=== PATIENT | female | born 1935 | race Caucasian/White ===

== ENCOUNTER → 2016-06-12 | Outpatient (CLI) | payer OTHER ==
--- NOTE | 2016-06-12 15:32 | MAMMOGRAPHY REPORT ---
BILATERAL DIGITAL SCREENING MAMMOGRAM TOMOSYNTHESIS WITH CAD: 06/12/2016 CLINICAL HISTORY: Routine screening. Patient has no complaints. TECHNIQUE: Breast tomosynthesis in addition to standard 2D mammography was performed. Current study was also evaluated with a Computer Aided Detection (CAD) system. COMPARISON: Comparison is made to exams dated: 10/27/2014 mammogram, 05/21/2014 mammogram, 10/26/2013 mammogram, 09/07/2012 mammogram, 11/07/2013 mammogram, and 03/09/2012 mammogram. BREAST COMPOSITION: There are scattered areas of fibroglandular density in both breasts. FINDINGS: No suspicious masses, calcifications, or areas of architectural distortion are noted in e ither breast. There has been no significant interval change compared to prior exams. Bilateral celso gn-appearing calcifications are not significantly changed. IMPRESSION: ACR BI-RADS CATEGORY 2: BENIGN There is no mammographic evidence of malignancy. A 1 year screening mammogram is recommended. The p atient will receive written notification of the results. Approximately 10% of breast cancers are not detected with mammography. A negative mammographic repor t should not delay biopsy if a clinically suggestive mass is present. Maggy Donnelly M.D. ah/:06/12/2016 14:42:06 Benefits Manager: Florina GIRMM(Yamel)(M), [facility] letter sent: Normal 1/2 BI-RADS Code: ACR BI-RADS Category 2: Benign
== END | disposition home or self-care (01) ==
LOC: C.MAMM 13:43
PROVIDERS: ATTEND Internal Medicine Geriatric Medicine
DX: Z12.31 Encounter for screening mammogram for malignant neoplasm of breast (principal)

== ENCOUNTER → 2016-08-27 | Outpatient (CLI) | payer OTHER | END | disposition home or self-care (01) | LOC: C.PATHSPEC 17:48 | PROVIDERS: ATTEND Dermatology | DX: L57.0 Actinic keratosis (principal) ==

== ENCOUNTER → 2016-10-02 | Outpatient (CLI) | payer OTHER | END | disposition home or self-care (01) | LOC: C.PATHSPEC 17:32 | PROVIDERS: ATTEND Plastic Surgery | DX: C44.719 Basal cell carcinoma of skin of left lower limb, including hip (principal) ==

== ENCOUNTER → 2016-11-05 | Outpatient (CLI) | payer OTHER ==
[2016-11-05 13:05] LABS: BASO % 0.2 %; BASO ABS # 0.02 K/uL (0-0.2); COMPLETE YES; EOS % 1.7 %; HEMATOCRIT 39.9 % (37-47); IG% 0.4 %; LYMPH % 19.4 %; LYMPH ABS # 1.56 K/uL (1.2-3.4); MEAN CELL VOLUME 84.2 fL (80-100); MEAN CORPUSCULAR HEMOGLOBIN 28.1 pg (25-34); MEAN CORPUSCULAR HGB CONC 33.3 g/dl (32-36); MEAN PLATELET VOLUME 10.5 fL (7.4-10.4); MONO % 10.7 %; NEUT % 67.6 %; PLATELET COUNT 217 K/uL (130-400); RED BLOOD COUNT 4.74 M/uL (4.2-5.4); WHITE BLOOD COUNT 8.06 K/uL (4.8-10.8)
[2016-11-05 13:22] LABS: ALT/SGPT 20 U/L (12-78); AST/SGOT 19 U/L (15-37); BLOOD UREA NITROGEN 13 mg/dl (7-18); BUN/CREATININE RATIO 17.6 (10-20); CALCIUM 9.2 mg/dl (8.5-10.1); CARBON DIOXIDE 29 mmol/L (21-32); CHLORIDE 103 mmol/L (98-107); CREATININE 0.75 mg/dl (0.60-1.20); GLUCOSE 126 mg/dl (70-99); POTASSIUM 3.8 mmol/L (3.5-5.1); SODIUM 138 mmol/L (136-145)
[2016-11-05 13:30] LABS: ALB/GLOB RATIO 1.1 (0.9-2); ALKALINE PHOSPHATASE 148 U/L (45-117); CHOLESTEROL 135 mg/dl (0-200); CHOLESTEROL/HDL RATIO 3.4; HDL CHOLESTEROL 40 mg/dl; LDL CHOLESTEROL CALCULATED 60 mg/dl; TRIGLYCERIDES 176 mg/dl (0-150); VERY LOW DENSITY LIPOPROT CALC 35 mg/dl
[2016-11-05 13:55] LABS: ESTIMATED AVERAGE GLUCOSE 140 mg/dl; HA1C FLAG Normal (Normal)
== END | disposition home or self-care (01) ==
LOC: C.LABMFLN 09:53
PROVIDERS: ATTEND Internal Medicine Geriatric Medicine
DX: E11.9 Type 2 diabetes mellitus without complications (principal); I10 Essential (primary) hypertension; E78.5 Hyperlipidemia, unspecified; I25.10 Atherosclerotic heart disease of native coronary artery without angina pectoris; E83.52 Hypercalcemia

== ENCOUNTER → 2017-01-26 | Outpatient (CLI) | payer OTHER ==
[2017-01-26 14:04] LABS: ALT/SGPT 23 U/L (12-78); AST/SGOT 22 U/L (15-37)
== END | disposition home or self-care (01) ==
LOC: C.LABMFLN 11:45
PROVIDERS: ATTEND Internal Medicine Cardiovascular Disease
DX: I10 Essential (primary) hypertension (principal); E78.5 Hyperlipidemia, unspecified; I25.10 Atherosclerotic heart disease of native coronary artery without angina pectoris; I42.9 Cardiomyopathy, unspecified

== ENCOUNTER → 2017-05-25 | Outpatient (CLI) | payer OTHER ==
[2017-05-25 18:20] LABS: BASO % 0.3 %; BASO ABS # 0.02 K/uL (0-0.2); EOS % 1.5 %; EOS ABS # 0.11 K/uL (0-0.5); HEMATOCRIT 39.5 % (37-47); HEMOGLOBIN 13.3 g/dL (12.0-16.0); IG# 0.01 K/uL (0.00-0.02); LYMPH % 18.4 %; LYMPH ABS # 1.37 K/uL (1.2-3.4); MEAN CELL VOLUME 86.1 fL (80-100); MEAN CORPUSCULAR HGB CONC 33.7 g/dl (32-36); MEAN PLATELET VOLUME 11.2 fL (7.4-10.4); MONO % 11.3 %; MONO ABS # 0.84 K/uL (0.11-0.59); NEUT % 68.4 %; NEUT ABS # 5.08 K/uL (1.4-6.5); PLATELET COUNT 214 K/uL (130-400); RED CELL DISTRIBUTION WIDTH CV 14.3 % (11.5-14.5); WHITE BLOOD COUNT 7.43 K/uL (4.8-10.8)
[2017-05-25 18:53] LABS: ALBUMIN 3.6 gm/dl (3.4-5.0); ALT/SGPT 21 U/L (12-78); BLOOD UREA NITROGEN 16 mg/dl (7-18); CALCIUM 9.1 mg/dl (8.5-10.1); CARBON DIOXIDE 32 mmol/L (21-32); CHOLESTEROL 115 mg/dl (0-200); CREATININE 0.75 mg/dl (0.60-1.20); GLUCOSE 116 mg/dl (70-99); POTASSIUM 3.6 mmol/L (3.5-5.1); SODIUM 134 mmol/L (136-145)
[2017-05-25 18:55] LABS: ALKALINE PHOSPHATASE 139 U/L (45-117); AST/SGOT 24 U/L (15-37); LDL CHOLESTEROL CALCULATED 48 mg/dl; TOTAL PROTEIN 7.1 gm/dl (6.4-8.2)
[2017-05-26 05:40] LABS: HEMOGLOBIN A1C 6.6 % (4.5-5.6)
== END | disposition home or self-care (01) ==
LOC: C.LABMFLN 10:43
PROVIDERS: ATTEND Internal Medicine Geriatric Medicine
DX: E11.42 Type 2 diabetes mellitus with diabetic polyneuropathy (principal); F32.9 Major depressive disorder, single episode, unspecified; I10 Essential (primary) hypertension; E78.5 Hyperlipidemia, unspecified; I25.10 Atherosclerotic heart disease of native coronary artery without angina pectoris; E83.52 Hypercalcemia

== ENCOUNTER → 2017-08-19 | Outpatient (CLI) | payer OTHER ==
--- NOTE | 2017-08-20 14:54 | MAMMOGRAPHY REPORT ---
BILATERAL DIGITAL SCREENING MAMMOGRAM TOMOSYNTHESIS WITH CAD: 08/19/2017 CLINICAL HISTORY: Routine screening. Patient has no complaints. TECHNIQUE: Breast tomosynthesis in addition to standard 2D mammography was performed. Current study was also evaluated with a Computer Aided Detection (CAD) system. COMPARISON: Comparison is made to exams dated: 06/12/2016 mammogram - [facility], 11/07/2014 mammogram, 10/27/2014 mammogram, 05/21/2014 mammogram, 11/07/2013 mammogram, and 10/26/2013 mammogr am. BREAST COMPOSITION: There are scattered areas of fibroglandular density in both breasts. FINDINGS: There is a spiculated 13 mm mass with associated microcalcifications in the upper outer an terior left breast. Additional spot magnification views and targeted ultrasound are recommended for further evaluation. There is Mild vascular calcifications and other scattered punctate and round microcalcifications in each breas t. A linear scar marker overlies the superior left breast. No other suspicious mass, architectural distortion or cluster of microcalcifications is seen. IMPRESSION: ACR BI-RADS CATEGORY 0: INCOMPLETE EVALUATION: NEED ADDITIONAL IMAGING EVALUATION The spiculated mass with associated microcalcification in the upper outer anterior left breast needs additional evaluation. The patient will be called to schedule an appointment. Approximately 10% of breast cancers are not detected with mammography. A negative mammographic report should not delay biopsy if a clinically suggestive mass is present. Dede Vasquez M.D. ay/:08/19/2017 15:48:49 Rn Informatics: Macarena GRIMM(Yamel)(Som)(BD), [facility] letter sent: Addl Imaging 0 BI-RADS Code: ACR BI-RADS Category 0: Incomplete Evaluation: Need Additional Imaging Evaluation
== END | disposition home or self-care (01) ==
LOC: C.MAMM 14:14
PROVIDERS: ATTEND Internal Medicine Geriatric Medicine
DX: Z12.31 Encounter for screening mammogram for malignant neoplasm of breast (principal); N63.21 Unspecified lump in the left breast, upper outer quadrant; R92.0 Mammographic microcalcification found on diagnostic imaging of breast

== ENCOUNTER → 2017-09-03 | Outpatient (CLI) | payer OTHER ==
--- NOTE | 2017-09-04 14:21 | MAMMOGRAPHY REPORT ---
UNILATERAL LEFT DIGITAL DIAGNOSTIC MAMMOGRAM AND TARGETED LEFT ULTRASOUND: 09/03/2017 CLINICAL HISTORY: Callback from screening mammogram for left breast mass and calcifications. TECHNIQUE: Spot magnification left CC and ML views were obtained. COMPARISON: Comparison is made to exams dated: 08/19/2017 mammogram, 06/12/2016 mammogram - [facility], 11/07/2014 mammogram, 10/27/2014 mammogram, 05/21/2014 mammogram, and 11/07/2013 mammogr am. BREAST COMPOSITION: There are scattered areas of fibroglandular density in the left breast. FINDINGS: Spot magnification views demonstrate a persistent spiculated 14 x 9 mm mass with associated pleomorphic calcifications within the left upper outer anterior breast. Additionally, another simil ar-appearing pleomorphic calcifications are seen throughout the left upper outer quadrant, with total extent of the calcifications measuring approximately 6.3 x 5.8 x 6.7 cm. Targeted ultrasound was performed of the left upper outer anterior breast in the region of the mammog raphic mass and calcifications. In the left 1:00 subareolar breast, there is an irregular hypoechoic spiculated mass which measures 1.4 x 0.7 x 1.3 cm. this corresponds with the spiculated mammographic mass with associated calcifications and is highly suspicious for malignancy. Targeted ultrasound wa s performed of the left axilla, which shows morphologically normal left axillary lymph nodes without clear evidence of adenopathy. IMPRESSION: ACR BI-RADS CATEGORY 5: HIGHLY SUGGESTIVE OF MALIGNANCY, TARGETED ULTRASOUND ACR BI-RADS CATEGORY 5: HIGHLY SUGGESTIVE OF MALIGNANCY 1. Spiculated 14 mm mass with associated internal pleomorphic calcifications within the left 1:00 sub areolar breast. Additionally, other suspicious pleomorphic calcifications are seen throughout the le ft upper outer quadrant, with extent of the calcifications measuring approximately 6.3 x 5.8 x 6.7 cm . Overall the findings are highly suspicious for malignancy and ultrasound-guided biopsy is recommen ded of the left 1:00 breast mass and stereotactic biopsy is recommended of other calcifications furth est from the mass to determine extent of disease. 2. No evidence of left axillary adenopathy on ultrasound. A phone call was made to the physician's office to confirm faxed results were received. The patient has been verbally notified of the results. She tentatively scheduled the biopsies before leaving the department. Approximately 10% of breast cancers are not detected with mammography. A negative mammographic report should not delay biopsy if a clinically suggestive mass is present. Maggy Donnelly M.D. ah/:09/03/2017 15:47:30 Marketing Database Consultant: Florina ELLIOTT)(Som), [facility] letter sent: Abnormal 4/5 BI-RADS Code: ACR BI-RADS Category 5: Highly Suggestive Of Malignancy Ultrasound BI-RADS: ACR BI-RAD S Category 5: Highly Suggestive Of Malignancy
== END | disposition home or self-care (01) ==
LOC: C.MAMM 11:18
PROVIDERS: ATTEND Internal Medicine Geriatric Medicine
DX: N63.21 Unspecified lump in the left breast, upper outer quadrant (principal); R92.1 Mammographic calcification found on diagnostic imaging of breast

== ENCOUNTER → 2017-09-09 | Outpatient (CLI) | payer OTHER ==
--- NOTE | 2017-09-09 14:23 | Discharge Instructions ---
Discharge Instructions Procedure Procedure Date: September 09, 2017. Reason for visit: Left Calcs; Us Bx Left Mass. Discharge Discharge Date: September 09, 2017. Discharge Diagnosis: status post breast biopsy Instructions Activity Recommendations: Additional Limitations (see below) Return to School/Work: no limitations Recommended Home Diet: No Limitations Provider Instructions: ACTIVITY RECOMMENDATIONS: * No lifting, pushing, pulling or exercising the affected side for three days. RETURN TO SCHOOL/WORK: * You may return to work/school after the procedure, but do not perform any strenuous activities for 24 to 48 hours. MEDICATIONS: * Tylenol (two 325 mg) every four to six hours if needed for mild pain (if not allergic to Tylenol). DIET: * Resume previous diet. SPECIAL CARE INSTRUCTIONS: * Keep biopsy site dry for 24 hours. May shower after 24 hours, but do not soak (bathe) incision. * May remove Tegaderm (plastic patch) tomorrow AFTER showering. * Leave the steri-strips on for one week. Allow the steri-strips to fall off by themselves. If not off after one week, you may remove them. You may place a Bandaid crosswise over the strips, if desired. * Apply ice 10 minutes on and 10 minutes off as needed. * Wear a bra at bedtime to sleep more comfortably for 2-3 days. * Your referring physician should have the results after approximately 5 to 7 business days. * Call for unusual bleeding, fever, drainage, etc or if you have any questions call during normal business hours or after hours call Dr Donnelly, . FOLLOW UP VISIT: Follow-up with Referring Physician as scheduled. Olga Leong Recommendations: Call your doctor if: * Temperature above 101 degrees * Pain not relieved by pain medicine ordered * There is increased drainage or redness from any incision * You have any unanswered questions or concerns. Your Doctors Instructions noted above were prepared by provider Maggy Donnelly. Patient Signature Section: Patient Instructions Signature Page Regina Camargo Patient (or Guardian) Signature/Date: I have read and understand the instructions given to me by my caregivers. Caregiver/RN/Doctor Signature/Date: The above-named patient and/or guardian has received patient instructions on this date. + Original Patient Signature Page (only) stays with chart. Please make copy for patient.
--- NOTE | 2017-09-11 07:46 | MAMMOGRAPHY REPORT ---
STEREOTACTIC GUIDED BIOPSY LEFT BREAST: 09/09/2017 CLINICAL HISTORY: Suspicious mass with associated calcifications in the left 1:00 breast anteriorly, as well as other pleomorphic calcifications seen throughout the left upper outer quadrant. PATIENT CONSENT: The procedure, risks, benefits, and alternatives of stereotactic biopsy with clip pl acement were discussed with the patient, and verbal and written consent was obtained. A timeout was performed immediately prior to the procedure. PROCEDURE DESCRIPTION: With stereotactic guidance, aseptic technique, and lidocaine as a local anesth etic (1% lidocaine to anesthetize the skin and 1% lidocaine with epinephrine to anesthetize the deepe r tissues), pleomorphic calcifications within the left central/3:00 breast were sampled multiple time s with a 9-gauge vacuum-assisted biopsy needle ([employer]). The path of approach was lateral. The specimen radiograph demonstrates calcifications to be present in the samples. A metallic marker cli p was placed at the biopsy site. This was confirmed on postprocedure mammograms; see separate dictat ion for details. Direct pressure was applied at the biopsy site and hemostasis was readily achieved. The patient tolerated the procedure without complication. She was given wound care instructions. COMPARISON: Comparison is made to exams dated: 09/03/2017 ultrasound, 09/03/2017 mammogram, 08/19/2017 ma mmogram, 06/12/2016 mammogram - [facility], 10/27/2014 mammogram, and 11/07/2013 mammogr am. IMPRESSION: STEREOTACTIC GUIDED BIOPSY Stereotactic biopsy of indeterminate calcifications in the left 3:00/central breast, with clip placem ent. The patient will receive pathology results from her referring provider. Maggy Donnelly M.D. ah/:09/09/2017 15:15:17 Attending Technologist: Florina Jones RT(R)(M), [facility] Repair Order Clerk: Wenceslao Olivarez RT(R)(M), [facility]
--- NOTE | 2017-09-11 07:50 | MAMMOGRAPHY REPORT ---
UNILATERAL LEFT DIGITAL DIAGNOSTIC MAMMOGRAM TOMOSYNTHESIS: 09/09/2017 CLINICAL HISTORY: Status post left breast biopsies. TECHNIQUE: Breast tomosynthesis in addition to standard 2D mammography was performed. Postprocedura l left CC and LM 2D and tomosynthesis images were obtained. COMPARISON: Comparison is made to exams dated: 09/03/2017 ultrasound, 09/03/2017 mammogram, 08/19/2017 ma mmogram, 06/12/2016 mammogram - [facility], 11/07/2014 mammogram, and 05/21/2014 mammogr am. BREAST COMPOSITION: There are scattered areas of fibroglandular density in the left breast. FINDINGS: A new ribbon-shaped biopsy marker clip is seen at the site of the biopsied mass and calcifi cations in the left 1:00 anterior breast. A new dumbbell-shaped biopsy marker clip is seen in the le ft 9:00 breast status post stereotactic biopsy of left central/3:00 breast calcifications. There is probable medial migration of the biopsy marker clip from the biopsy site of approximately 18 mm, like ly due to accordion effect. The 2 biopsy sites are approximately 3.9 cm apart on the cc view and 3.5 cm apart on the LM view. No significant postbiopsy hematoma is seen. IMPRESSION: POST PROCEDURE IMAGING FOR MARKER PLACEMENT New biopsy marker clips status post left breast biopsies. Pathology results are pending. Approximately 10% of breast cancers are not detected with mammography. A negative mammographic report should not delay biopsy if a clinically suggestive mass is present. Maggy Donnelly M.D. ah/:09/09/2017 15:17:28 Attending Technologist: Florina Jones RT(R)(M), [facility] Pin Drafter: Wenceslao Olivarez RT(R)(M), [facility] BI-RADS Code: Post Procedure Imaging For Marker Placement
--- NOTE | 2017-09-14 10:16 | MAMMOGRAPHY REPORT ---
ULTRASOUND GUIDED BIOPSY LEFT BREAST: 09/09/2017 CLINICAL HISTORY: Spiculated mass with associated calcifications in the left 1:00 breast. PATIENT CONSENT: The procedure, risks and benefits were discussed with the patient and informed writt en consent was obtained. A timeout was performed immediately prior to the procedure. PROCEDURE DESCRIPTION: With ultrasound guidance, aseptic technique, and lidocaine as the local anesth etic (1% lidocaine to anesthetize the skin and 1% lidocaine with epinephrine to anesthetize the deepe r tissues), the mass of concern in the left 1:00 breast with associated calcifications was sampled 4 times with a 14-gauge Achieve biopsy needle. Immediately thereafter, with ultrasound guidance, asepti c technique, and lidocaine as the local anesthetic, a metallic localizer clip was placed centrally in the mass. Direct pressure was applied to the site immediately post procedure and hemostasis was ach ieved. Postprocedure unilateral mammograms were performed to confirm placement of the clip in the ex pected location of the breast mass. The patient tolerated the procedure without complication. She w as given wound care instructions. The specimens were sent to pathology for analysis. COMPARISON: Comparison is made to exams dated: 09/03/2017 ultrasound, 09/03/2017 mammogram, 08/19/2017 ma mmogram, 06/12/2016 mammogram - [facility], 10/27/2014 mammogram, and 05/21/2014 mammog radha. IMPRESSION: ULTRASOUND GUIDED BIOPSY Ultrasound-guided core needle biopsy of the left 1:00 breast mass with associated calcifications, wit h clip placement. The patient will receive pathology results from her referring provider. Maggy Donnelly M.D. ah/:09/09/2017 14:24:33 Continuous Process Tanner Rotary Drum: Wenceslao GRIMM(R)(M), [facility]
== END | disposition home or self-care (01) ==
LOC: C.MAMM 13:25
PROVIDERS: ATTEND Internal Medicine Geriatric Medicine
DX: R92.1 Mammographic calcification found on diagnostic imaging of breast (principal); N63.20 Unspecified lump in the left breast, unspecified quadrant; D05.12 Intraductal carcinoma in situ of left breast

== ENCOUNTER → 2017-12-16 | Outpatient (CLI) | payer OTHER ==
[~2017-12-16] MED LIST: ASPI81TA28 PO; ATEN50TA8 PO; ATOR-26 PO; BNC/40 PO; CALC500C3 PO; CALC500C70 PO; CETI10TA84 PO; CLB/200 PO; GABA-112 PO; GLC/500 PO; HYDR25TA5 PO; MELATAB2 PO; OMEG10007 PO; VENL150C2 PO; VENL75CA88 PO
[2017-12-16 11:59] LABS: ALBUMIN 3.4 gm/dl (3.4-5.0); ALKALINE PHOSPHATASE 141 U/L (45-117); ALT/SGPT 20 U/L (12-78); AST/SGOT 20 U/L (15-37); BLOOD UREA NITROGEN 18 mg/dl (7-18); CALCIUM 9.3 mg/dl (8.5-10.1); CARBON DIOXIDE 28 mmol/L (21-32); CREATININE 0.67 mg/dl (0.60-1.20); GLUCOSE 106 mg/dl (70-99); POTASSIUM 4.1 mmol/L (3.5-5.1); SODIUM 132 mmol/L (136-145); TOTAL PROTEIN 7.2 gm/dl (6.4-8.2)
[2017-12-16 12:12] LABS: BASO % 0.2 %; BASO ABS # 0.04 K/uL (0-0.2); EOS % 0.1 %; EOS ABS # 0.01 K/uL (0-0.5); HEMATOCRIT 28.8 % (37-47); HEMOGLOBIN 9.5 g/dL (12.0-16.0); IG# 0.19 K/uL (0.00-0.02); LYMPH ABS # 0.76 K/uL (1.2-3.4); MEAN CELL VOLUME 80.2 fL (80-100); MEAN CORPUSCULAR HEMOGLOBIN 26.5 pg (25-34); MEAN PLATELET VOLUME 9.8 fL (7.4-10.4); MONO % 8.8 %; MONO ABS # 1.66 K/uL (0.11-0.59); NEUT % 85.9 %; NEUT ABS # 16.27 K/uL (1.4-6.5); NUCLEATED RED BLOOD CELL ABS 0.04 K/uL (0-0); PLATELET COUNT 241 K/uL (130-400); RED CELL DISTRIBUTION WIDTH CV 14.5 % (11.5-14.5); RED CELL DISTRIBUTION WIDTH SD 41.6 fL (36.4-46.3); WHITE BLOOD COUNT 18.93 K/uL (4.8-10.8)
== END | disposition home or self-care (01) ==
LOC: C.LABSPEC 11:23
PROVIDERS: ATTEND Nurse Practitioner Family
DX: C50.112 Malignant neoplasm of central portion of left female breast (principal)

== ENCOUNTER 2019-03-03 01:06 | Inpatient (IN) ==
[2019-03-03 01:50] LABS: Basophils # (auto) 0.01 K/uL (0-0.2); Basophils % (auto) 0.1 %; Eosinophils # (auto) 0.14 K/uL (0-0.5); Eosinophils % (auto) 1.3 %; Hematocrit (blood only) 34.6 % (37-47); Hemoglobin 11.6 g/dL (12.0-16.0); Immature Granulocytes # (auto) 0.02 K/uL (0.00-0.02); Immature Granulocytes % (auto) 0.2 %; Lymphocytes # (auto) 1.33 K/uL (1.2-3.4); Lymphocytes % (auto) 12.5 %; Mean Corpuscular Hemoglobin 28.7 pg (25-34); Mean Corpuscular Hgb Conc 33.5 g/dL (32-36); Mean Corpuscular Volume 85.6 fL (80-100); Mean Platelet Volume 10.1 fL (7.4-10.4); Monocytes # (auto) 1.02 K/uL (0.11-0.59); Monocytes % (auto) 9.6 %; Neutrophils # (auto) 8.16 K/uL (1.4-6.5); Neutrophils % (auto) 76.3 %; Platelet Count 172 K/uL (130-400); RDW Coefficient of Variation 14.1 % (11.5-14.5); RDW Standard Deviation 44.1 fL (36.4-46.3); Red Blood Count 4.04 M/uL (4.2-5.4); White Blood Count 10.68 K/uL (4.8-10.8)
[2019-03-03 03:48] LABS: BUN Creatinine Ratio 19.8 (10-20); Calcium 9.1 mg/dl (8.5-10.1); Creatinine Clr Calc Pharmacy 38.9 ml/min; Est GFR (African American) 67.7; Est GFR (Non-African American) 58.4; Potassium 3.4 mmol/L (3.5-5.1)
[2019-03-03 03:56] LABS: Partial Thromboplastin Ratio 0.9; Partial Thromboplastin Time 25.5 Seconds (21.0-31.0); Prothrombin Time 10.5 Seconds (9.0-12.0)
[2019-03-03] MEDS ORDERED: ONDANSETRON INJ 2 MG/ML 2 ML VIAL IV PRN (05:15)
[2019-03-03] MEDS ORDERED: cloNIDine HCl 0.1 MG TAB PO PRN (05:15)
[2019-03-03] MEDS ORDERED: CETIRIZINE HCL 10 MG TABLET PO PRN (05:15)
[2019-03-03] MEDS ORDERED: SODIUM CHLORIDE 0.9% 1000ML 1,000 ML IV SCH (05:15)
[2019-03-03] MEDS ORDERED: MELATONIN PO SCH (05:15)
[2019-03-03] MEDS ORDERED: POLYETHYLENE (MIRALAX) 17 GM PACK PO PRN (05:15)
--- NOTE | 2019-03-03 05:21 | History and Physical Report ---
DATE OF ADMISSION: 03/03/2019 CHIEF COMPLAINT: Status post fall. HISTORY OF PRESENT ILLNESS: This is an 83-year-old female with past medical history significant for type 2 diabetes, hyperlipidemia, allergic rhinitis, CAD status post stents, hypertension, GERD, dermatitis, history of osteoporosis, depression, history of breast cancer status post left simple mastectomy, who lives with her , who comes with a fall. The patient was on the ladder painting her house. When getting down the second step, she somehow lost balance and fell sideways. Eventually, she was able to get up with the help of her , but she could not put weight on the legs because of severe pain, so she came to the ER. She did not hit her head, no loss of consciousness. In the ER, imaging studies showed pubic rami fracture. The patient denies any other complaints. Until this happened, she was able to ambulate without any help. Denies any headache. No dizziness, no blurred visions, no earache, no runny nose, no sore throat, no difficulty swallowing. No chest pain, no shortness of breath, no cough, no fever, no chills. Sleeps okay. No recent weight gain or weight loss. No nausea, no vomiting, no abdominal pain. Normal bowel and bladder movements. No hematuria, no hematochezia, no black stools. No rash. Currently resting comfortably and hemodynamically stable. ALLERGIES: IODINATED DIAGNOSTIC AGENTS, LISINOPRIL, AND PAROXETINE. PAST MEDICAL HISTORY: As mentioned above. PAST SURGICAL HISTORY: Breast needle localization, cardiac catheterization status post stent placement, angioplasty in 1989, EGD, appendectomy. MEDICATIONS: The patient is on aspirin 81 mg p.o. daily, alendronate 70 mg p.o. q. weekly, anastrozole 1 mg p.o. daily, atenolol 50 mg p.o. daily, atorvastatin 80 mg p.o. daily, calcium carbonate 1 tablet daily, Celecoxib 200 mg p.o. daily, cetirizine 10 mg p.o. daily p.r.n., Dexilant 60 mg p.o. daily, clobetasol 0.05% topical b.i.d., gabapentin 300 mg p.o. t.i.d., hydrochlorothiazide 25 mg p.o. daily, melatonin 5 mg p.o. at bedtime, metformin 500 mg 1 tablet in a.m. and 2 tablets in p.m., multivitamin 1 capsule daily, olmesartan 40 mg p.o. daily, venlafaxine 75 mg daily, venlafaxine ER 150 mg tablet. SOCIAL HISTORY: , lives with her . No smoking. Alcohol rarely. No drug use. FAMILY HISTORY: Significant for father has arthritis, diabetes, high cholesterol, cataracts, heart disorder, hypertension, COPD. Mother had osteoporosis, hypertension, heart disorder, cataract, high cholesterol, colon polyps, arthritis. Sister has diabetes, high cholesterol. REVIEW OF SYSTEMS: As per HPI. Rest of the review of systems negative. PHYSICAL EXAMINATION: GENERAL: The patient is of moderate build, not in acute distress. VITAL SIGNS: Temperature 37, pulse 70, respiratory rate 18, blood pressure 162/99, and oxygen 99% on room air. HEENT: No pallor, no icterus. Pupils equal, round, reactive to light. NECK: No JVD, no neck masses, no carotid bruits. CARDIOVASCULAR: S1, S2 heard, regular rate and rhythm, no murmur, no gallop. RESPIRATORY SYSTEM: Normal AP diameter. No accessory muscle use. No wheezing, no crackles. ABDOMEN: Soft, bowel sounds present, nontender. No distention. CENTRAL NERVOUS SYSTEM: Cranial nerves II-XII grossly intact, nonfocal. EXTREMITIES: No edema, no erythema. Painful movements of the lower extremities remains on the right side. LABORATORY DATA: WBC 10, hemoglobin 11.6, hematocrit 34.6, platelets 172. PT 10.5, INR 1, APTT 25.5. Sodium 136, potassium 3.4, chloride 101, bicarbonate 27, BUN 18, creatinine 0.9, serum glucose 125, calcium 9.1. IMAGING DATA: Chest x-ray, no acute process seen. ASSESSMENT AND PLAN: This is an 83-year-old female who presents with fall and pelvic rami fracture. 1. Fall, pelvic rami fracture, ambulatory dysfunction. Pain control, PT, OT. We will consult orthopedics for further recommendation. Social service to help with discharge planning. The patient may need rehabilitation. Gentle fluids. Monitor in the medical floor. 2. History of diabetes. Hold metformin, placed on insulin sliding scale. Will follow the blood sugars, follow HbA1c level. 3. History of hypertension. Continue olmesartan, atenolol, and hydrochlorothiazide. We will place on clonidine p.r.n. 4. History of coronary artery disease status post stent, on aspirin, Lipitor, beta tatyana, currently stable. 5. History of gastroesophageal reflux disease, on Dexilant. 6. Hyperlipidemia, on statin. 7. Depression, on venlafaxine. 8. History of breast cancer status post left simple mastectomy, on anastrozole. 9. Deep venous thrombosis prophylaxis. Heparin subQ for now. 10. Disposition: Admit to medical floor. PT and OT prior to discharge. Social service to help with discharge planing. Patient may need rehab placement. Level 1 full code. MTDD
[2019-03-03] MEDS ORDERED: GLUCOSE 40% GEL 15 GM TUBE PO PRN (05:30)
[2019-03-03] MEDS ORDERED: CARBOHYDRATES FOR HYPOGLYCEMIA PO PRN (05:30)
[2019-03-03] MEDS ORDERED: GLUCOSE 10 TABS/TUBE PO PRN (05:30)
[2019-03-03] MEDS ORDERED: DEXTROSE 50% 50 ML SYRINGE IV PRN (05:30)
[2019-03-03] MEDS ORDERED: GLUCAGON FOR INJ 1 MG VIAL SQ PRN (05:30)
[2019-03-03] MEDS: HEPARIN SOD 5,000 UNIT/0.5 ML VIAL SQ SCH ×3 (05:57→21:34)
[2019-03-03] MEDS: OXYCODONE HCL IR 5 MG TAB (IMMEDIATE RELEASE) PO PRN ×4 (05:59→21:39)
[2019-03-03] MEDS ORDERED: POTASSIUM CHLORIDE 20 MEQ TABCR PO STA (06:06)
--- NOTE | 2019-03-03 06:35 | XRay Report ---
XR chest 1V portable CLINICAL HISTORY: Preoperative chest COMPARISON STUDY: 11/18/2017 FINDINGS: The cardiac and mediastinal contours remain stable. A left-sided A-Port catheter is again v isualized. There is no focal pulmonary consolidation. There is no failure. There are no pleural effus ions. Surgical clips are visualized the level of the esophagogastric junction.[ IMPRESSION: No active disease in the chest. Electronically signed by: Massimo Mitchell M.D. 03/03/2019 6:33 AM
--- NOTE | 2019-03-03 06:37 | XRay Report ---
XR hip RT 2V w pelvis CLINICAL HISTORY: Right hip pain status post trauma COMPARISON: None. DISCUSSION: There is a suspected right ischio pubic ring fracture. No femoral neck fractures are visu alized. IMPRESSION: Nondisplaced right ischio pubic ring fracture. Electronically signed by: Massimo Mitchell M.D. 03/03/2019 6:35 AM
--- NOTE | 2019-03-03 06:39 | XRay Report ---
XR wrist RT min 3V routine CLINICAL HISTORY: Wrist pain status post trauma COMPARISON: None. DISCUSSION: No acute fractures are visualized. There are cystic/erosive changes involving the triquet rum and radius. There is widening of the scapholunate distance indicative of a scapholunate ligamento us disruption. There are corticated ossicles at the level of the anterior radiocarpal joint. IMPRESSION: 1. No acute fractures 2. 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 03/03/2019 6:37 AM
--- NOTE | 2019-03-03 06:47 | Emergency Department Note ---
Entered by Angel Rossi acting as a scribe for History of Present Illness General Chief complaint: Fall Stated complaint: leg and hip pain Time Seen by Provider: 03/03/19 01:08 Source: patient History of Present Illness Onset (ago): day(s) (1629 yesterday) Location: right (groin) Pain Consistency: + constant Maximum Pain Intensity: 2 Associated symptoms: + other (Positive for right wrist pain. Negative for LOC an d abdominal pain.) The patient is an 83 year old female who presents to the emergency department with complaints of constant right groin pain following a fall occurring at 1630 yesterday. The patient states that she was coming down a ladder yesterday and fell off. She notes that she thought she was on the ground but had one more rung to go. She reports that she fell onto her butt, and she states that she is now experiencing right groin pain and right wrist pain. She notes that she did not hit her head when she fell, and she denies any LOC. She also denies any abdominal pain. She reports that she has a history of heart disease and diabetes. Home Medications Home Medications Medication Instructions Recorded Confirmed Type cetirizine 10 mg tablet 10 mg PO DAILY PRN tab 04/15/18 03/03/19 History dexlansoprazole 60 mg 60 mg PO DAILY 04/15/18 03/03/19 History capsule,biphase delayed release multivitamin capsule 1 cap PO DAILY 04/15/18 03/03/19 History hydrochlorothiazide 25 mg tablet 25 mg PO DAILY #90 tab 10/22/18 03/03/19 Rx venlafaxine ER 150 mg 150 mg PO DAILY #90 cap 12/20/18 03/03/19 Rx capsule,extended release 24 hr aspirin 81 mg tablet,delayed 81 mg PO DAILY tab 02/14/19 03/03/19 History release atenolol 50 mg tablet 50 mg PO DAILY #90 tab 02/14/19 03/03/19 History atorvastatin 80 mg tablet 80 mg PO QPM #90 tab 02/14/19 03/03/19 History calcium carbonate 200 mg calcium 200 mg PO DAILY tab 02/14/19 03/03/19 History (500 mg) chewable tablet celecoxib 200 mg capsule 200 mg PO DAILY #90 cap 02/14/19 03/03/19 History clobetasol 0.05 % topical cream 1 appln TOPICAL BID #3 gm 02/14/19 03/03/19 History melatonin 5 mg capsule 1 cap PO .TAKE 1 CAPSULE Bedti cap 02/14/19 03/03/19 History metformin 500 mg tablet See Rx Instructions PO BID tab 02/14/19 03/03/19 History olmesartan 40 mg tablet 40 mg PO DAILY #90 tab 02/14/19 03/03/19 History alendronate 70 mg PO WK 03/03/19 03/03/19 History anastrozole 1 mg PO DAILY 03/03/19 03/03/19 History gabapentin 300 mg PO TID 03/03/19 03/03/19 History venlafaxine 75 mg PO DAILY 03/03/19 03/03/19 History Allergies Allergy/AdvReac Type Severity Reaction Status Date / Time Iodinated Contrast Media Allergy Unknown Unknown - Verified 03/03/19 04:33 too long ago lisinopril AdvReac Mild COUGH Verified 03/03/19 04:33 paroxetine AdvReac Mild HEADACHE Verified 03/03/19 04:33 Past Med/Surg History Medical History Breast cancer Heart disease History of myocardial infarction (Acute) 1987 Invasive ductal carcinoma of breast (Acute) Left CAD (coronary artery disease) (Chronic) Cardiomyopathy (Chronic) Depression (Chronic) Diabetes mellitus, type II (Chronic) Diabetic peripheral neuropathy (Chronic) Dyslipidemia (Chronic) GERD (gastroesophageal reflux disease) (Chronic) Gastroparesis (Chronic) Hypercalcemia (Chronic) Hyperhidrosis (Chronic) Hypertension (Chronic) Insomnia (Chronic) Osteoarthritis (Chronic) Osteopenia (Chronic) Port-A-Cath in place (Chronic) Left Presence of drug coated stent in LAD coronary artery (Chronic) Raynauds phenomenon (Chronic) Bilat Toes Seborrheic keratosis (Chronic) History of basal cell carcinoma (Resolved) Leg History of chemotherapy (Resolved) TCH x 6 Cycles (C was Cylophosphomide), Herceptin x 1 year (q 3 weeks) Surgical History History of cardiac cath (Resolved) 2007 History of gastric surgery (Resolved) 1977 - Part of stomach and duodenum removed History of total mastectomy of left breast (Resolved) & SLN Biopsy - 10/07/17 Family History Grandmother (Maternal) , Passed in 80's of old age Colon cancer Mother , Passed age 92 of heart failure No problems noted. Father , Passed age 81 of heart failure No problems noted. Sister , Passed age 75 of colon CA Breast cancer, Onset Age: 60 Lumpectomy & Radiation Son No problems noted. Son No problems noted. 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 and A total of 10 systems reviewed and were otherwise negative Physical Exam Vital Signs Vital Signs - 24 hr 03/03/19 01:10 03/03/19 01:47 03/03/19 04:03 Temperature 37.0 C Temperature Source Oral Sepsis Recent Fever Within 48 Hours No Sepsis Action Taken by Nursing No Action Required Pulse Rate 81 Pulse Rate [Finger] 76 70 Respiratory Rate 16 17 18 Blood Pressure 188/108 H Blood Pressure [Right Arm] 167/82 H 162/99 H Blood Pressure Mean 134 Blood Pressure Mean [Right Arm] 110 120 Pulse Oximetry 97 97 99 Oxygen Delivery Method Room Air Room Air HEENT: Head - normocephalic and atraumatic. Pupils are equal, round, and reactive to light. Extraocular eye muscles are intact and sclera are anicteric. Nose - moist nasal mucosa without evidence of trauma or discharge. Mouth - moist buccal mucosa with no trauma to the teeth or signs of malocclusion. Neck: The neck is supple and there is no pain to palpation over the posterior cervical spine and no obvious step-offs or deformities. There is no JVD or tracheal deviation. Chest: There are no signs of deformities, contusions or abrasions to the chest wall. There is no obvious crepitus or paradoxical chest rise. Heart: Regular, rate, and rhythm. There is a normal S1 and S2 with no murmurs, clicks, or gallops appreciated. Lungs: Clear to auscultation bilaterally with no wheezes, rales, or rhonchi. Abdomen: Soft, completely nontender, nondistended, with good bowel sounds. There is no sign of trauma such as contusions, abrasions or penetrations. There are no palpable pulsatile masses or hepatosplenomegaly. There is no guarding, rigidity, or rebound noted. Pelvis: Stable to rock and compression. Pain to palpation of right groin. Extremities: No obvious contusions or edema. There are easily palpable peripheral pulses. Edema to the distal radius Neuro: The patient is awake and alert and easily able to follow commands. Muscle strength is 5 out of 5 in all 4 extremities. Otherwise, neuro exam is unremarkable. Back: The entire thoracic, lumbar, and sacral spine were palpated. There are no obvious step-offs or deformities noted. There are no obvious signs of trauma such as contusions abrasions penetrations noted to the back. Course 0117: The patient was evaluated in room A4. A complete history and physical examination were performed. Nursing notes and previous electronic medical records were reviewed. IV lock was established and labs were drawn as above. The patient will go for plain films of the right wrist and right hip/pelvis. 0208: I reevaluated and updated the patient. Her wrist feels fine. I moved it all around and the patient had no pain. She did have severe pain with slight movement of her right hip. She is going for CT. 0324: Upon reevaluation, the patient is stable. I discussed the findings and the treatment plan with the patient. She expresses agreement and understanding. I spoke with Dr. Lugo of the [facility]. The patient will be evaluated for further management. 0336: I rechecked the patient. She is still comfortable. Consultations Consultation #1: [facility] the [facility] He will evaluate the patient for further management. Time: 03:24 Administered Medications Heparin Sodium (Porcine) (Heparin Sodium (Porcine)) 5,000 units SQ Q8 [facility] Stop: 04/02/19 05:59 Last Admin: 03/03/19 05:57 Dose: 5,000 units Documented by: [id number] Cosigned by: [id number] Sodium Chloride (Nss 1000ml) 1,000 mls @ 75 mls/hr IV .[id number] [facility] Stop: 04/02/19 16:00 Last Admin: 03/03/19 05:56 Dose: 75 mls/hr Documented by: [id number] Oxycodone HCl (Roxicodone Immediate Rel) 5 mg PO Q4H PRN PRN Reason: Pain Stop: 03/17/19 05:14 Last Admin: 03/03/19 05:59 Dose: 5 mg Documented by: [id number] Medical Decision Making Differential Diagnosis Differential diagnoses include: hip fracture, wrist fracture, syncope, and mechanical fall. Medical Records Attestation: I reviewed the patient's medical records. Home Medications Current Medication List: was personally reviewed by me Laboratory Data Attestation: I reviewed the patient's lab results. Result diagrams: 03/03/19 01:40 03/03/19 01:40 Lab Results 03/03/19 03/03/19 03/03/19 Range/Units 01:40 01:40 01:40 WBC 10.68 (4.8-10.8) K/uL RBC 4.04 L (4.2-5.4) M/uL Hgb 11.6 L (12.0-16.0) g/dL Hct 34.6 L (37-47) % MCV 85.6 (80-100) fL MCH 28.7 (25-34) pg MCHC 33.5 (32-36) g/dL RDW Std Deviation 44.1 (36.4-46.3) fL RDW Coeff of Perez 14.1 (11.5-14.5) % Plt Count 172 (130-400) K/uL MPV 10.1 (7.4-10.4) fL Immature Gran % (Auto) 0.2 % Neut % (Auto) 76.3 % Lymph % (Auto) 12.5 % Traill % (Auto) 9.6 % Eos % (Auto) 1.3 % Baso % (Auto) 0.1 % Immature Gran # (Auto) 0.02 (0.00-0.02) K/uL Neut # (Auto) 8.16 H (1.4-6.5) K/uL Lymph # (Auto) 1.33 (1.2-3.4) K/uL Traill # (Auto) 1.02 H (0.11-0.59) K/uL Eos # (Auto) 0.14 (0-0.5) K/uL Baso # (Auto) 0.01 (0-0.2) K/uL PT 10.5 (9.0-12.0) Seconds INR 1.0 (0.9-1.1) APTT 25.5 (21.0-31.0) Seconds PTT Ratio 0.9 Sodium 136 (136-145) mmol/L Potassium 3.4 L (3.5-5.1) mmol/L Chloride 101 (98-107) mmol/L Carbon Dioxide 27 (21-32) mmol/L Anion Gap 8.0 (3-11) BUN 18 (7-18) mg/dl Creatinine 0.92 (0.6-1.2) mg/dl Est Cr Clr Drug Dosing 38.9 ml/min Est GFR ( Amer) 67.7 Est GFR (Non-Af Amer) 58.4 BUN/Creatinine Ratio 19.8 (10-20) Glucose 125 H (70-99) mg/dl Calcium 9.1 (8.5-10.1) mg/dl Blood Type Antibody Screen 03/03/19 Range/Units 01:40 WBC (4.8-10.8) K/uL RBC (4.2-5.4) M/uL Hgb (12.0-16.0) g/dL Hct (37-47) % MCV (80-100) fL MCH (25-34) pg MCHC (32-36) g/dL RDW Std Deviation (36.4-46.3) fL RDW Coeff of Perez (11.5-14.5) % Plt Count (130-400) K/uL MPV (7.4-10.4) fL Immature Gran % (Auto) % Neut % (Auto) % Lymph % (Auto) % Traill % (Auto) % Eos % (Auto) % Baso % (Auto) % Immature Gran # (Auto) (0.00-0.02) K/uL Neut # (Auto) (1.4-6.5) K/uL Lymph # (Auto) (1.2-3.4) K/uL Traill # (Auto) (0.11-0.59) K/uL Eos # (Auto) (0-0.5) K/uL Baso # (Auto) (0-0.2) K/uL PT (9.0-12.0) Seconds INR (0.9-1.1) APTT (21.0-31.0) Seconds PTT Ratio Sodium (136-145) mmol/L Potassium (3.5-5.1) mmol/L Chloride (98-107) mmol/L Carbon Dioxide (21-32) mmol/L Anion Gap (3-11) BUN (7-18) mg/dl Creatinine (0.6-1.2) mg/dl Est Cr Clr Drug Dosing ml/min Est GFR ( Amer) Est GFR (Non-Af Amer) BUN/Creatinine Ratio (10-20) Glucose (70-99) mg/dl Calcium (8.5-10.1) mg/dl Blood Type O Positive Antibody Screen NEGATIVE Imaging Data Attestation: I personally reviewed and interpreted this imaging study as follows: My Impression: RIGHT WRIST X-RAY: No obvious fracture. RIGHT HIP X-RAY: No obvious fracture. CHEST X-RAY: Mediport in place. No pulmonary infiltrates or pleural effusions. Radiologist's Impression: Radiology results as stated below per my review and the radiologist's interpretation: CT RIGHT HIP: Fractures of the right superior and inferior pubic rami as well as at the right pubic symphysis. No femoral head or neck fracture. Radiologist: Keron Michael MD. ECG Data Attestation: I personally reviewed and interpreted this ECG as follows: Indication: other (Fall) Rate (beats per minute): 77 Rhythm: normal sinus Additional Comments: No ectopy, no ischemia. Blood Pressure Blood Pressure Findings: Elevated blood pressure Blood Pressure Disposition: further management by hospitalist MDM Narrative The patient is an 83 year old female who presents to the emergency department with complaints of constant right hip pain following a fall occurring at 1630 yesterday. The patient did not strike her head or lose consciousness. She felt that the pain might get better so she delayed coming to the emergency department. However, she could not bear weight on that right leg. CT scan confirms multiple tiny pelvic fractures on the right. There was no obvious hip fracture. The x-ray of the right wrist showed some distraction of the distal ulna and questionable malalignment but the patient had full range of motion to the wrist. I discussed the case with the hospitalist and they will evaluate the patient for further management. Impression & Plan Fractured pelvis, Fall Discharge Plan Visit Data *Final* Discharge Date/Time: 03/03/19 04:29 Chief Complaint: Fall Stated Complaint: leg and hip pain ED Provider: Sol Manzano Discharge Problem: Fractured pelvis, Fall Patient Disposition: Admitted As Inpatient Discharge Instructions Interventions: ED Discharge Assessment Last Done: 03/03/19 04:29 Discharge Problem: Fractured pelvis Qualifiers: Encounter type: initial encounter Pelvic bone location: multiple parts Fracture type: closed Fracture alignment: without disruption of pelvic ring Qualified Code(s): S32.82XA - Multiple fractures of pelvis without disruption of pelvic ring, initial encounter for closed fracture Fall Qualifiers: Encounter type: initial encounter Qualified Code(s): W19.XXXA - Unspecified fall, initial encounter The scribe's documentation has been prepared under my direction and personally reviewed by me in its entirety. I confirm that the note above accurately reflects all work, treatment, procedures, and medical decision making performed by me.
--- NOTE | 2019-03-03 06:49 | CT Scan Report ---
CT pelvis wo con CT DOSE: CLINICAL HISTORY: Right hip and pelvic pain status post trauma TECHNIQUE: Helical images were acquired in the transverse plane. Sagittal and coronal reformatted rhiannon ges were acquired. A dose lowering technique was utilized adhering to the principles of ALARA. COMPARISON STUDY: X-ray study dated 03/03/2019 FINDINGS: There is no evidence for SI joint diastases. There is an acute nondisplaced right ischio pu bic ring fracture. No fractures of the proximal right femur are visualized. There are no dislocations . Arthritic changes are present within the lumbar spine. There is a grade 1-2 spondylolisthesis of L4 on L5. There are calcified mesenteric lymph nodes. There are calcified uterine fibroids. IMPRESSION: Acute nondisplaced right ischio pubic ring fracture. Electronically signed by: Massimo Mitchell M.D. 03/03/2019 6:48 AM
--- NOTE | 2019-03-03 07:12 | CT Scan Report ---
RIGHT HIP CT CT DOSE: HISTORY: Fall. Right hip pain. EVAL FOR FX TECHNIQUE: Multiaxial CT images of the right hip were performed and reformatted in the sagittal and c oronal plane without the use of contrast. A dose lowering technique was utilized adhering to the liv Martinez. COMPARISON: Right hip 03/03/2019. FINDINGS: No fracture or dislocation within the proximal right femur. Redemonstration of the minimall y displaced fractures involving the right superior and inferior pubic rami. Mild cartilage space narr owing within the right hip consistent with degenerative change. IMPRESSION: Minimally displaced fractures involving the right superior and inferior pubic rami. Electronically signed by: Oz Agarwal M.D. 03/03/2019 7:11 AM
[2019-03-03] MEDS ORDERED: CeleBREX 200 MG CAP PO SCH (09:00)
[2019-03-03] MEDS: OLMESARTAN MEDOXOMIL 40 MG TAB PO SCH (09:16)
[2019-03-03] MEDS: PANTOprazole 40 MG TAB PO SCH (09:16)
[2019-03-03] MEDS: MULTIVITAMIN TAB PO SCH (09:16)
[2019-03-03] MEDS: ASPIRIN 81 MG ECTAB PO SCH (09:16)
[2019-03-03] MEDS: CALCIUM CARBONATE 500 MG CHEWABLE TAB PO SCH (09:16)
[2019-03-03] MEDS: ANASTROZOLE 1 MG TAB PO SCH (09:16)
[2019-03-03] MEDS: GABAPENTIN 300 MG CAP PO SCH ×3 (09:17→21:38)
[2019-03-03] MEDS: hydroCHLOROthiazide 25 MG TAB PO SCH (09:17)
[2019-03-03] MEDS: VENLAFAXINE HCL XR 150 MG CAPXR PO SCH (09:17)
[2019-03-03] MEDS: ATENOLOL 50 MG TABLET PO SCH (09:18)
[2019-03-03] MEDS: VENLAFAXINE HCL XR 75 MG CAPXR PO SCH (09:19)
[2019-03-03] MEDS: CLOBETASOL PROPIONATE 0.05% OINT 15 GM TUBE EXT SCH ×2 (09:19→21:37)
[2019-03-03] MEDS ORDERED: POTASSIUM CHLORIDE 10 MEQ TABCR PO STA ×2 (09:20→09:38)
[2019-03-03] MEDS: INSULIN ASPART 100 UNITS/ML 3 ML PEN SC SCH ×4 (09:20→21:32)
[2019-03-03] MEDS: ACETAMINOPHEN 325 MG TAB PO PRN ×2 (11:34→17:03)
--- NOTE | 2019-03-03 13:14 | Orthopedic Consultation ---
Date of Consultation March 03, 2019 Assessment & Plan (1) Fractured pelvis: She has an LC-1 pelvic injury pattern with nondisplaced right superior and inferior pubic rami fractures. No associated sacral fracture. She may therefore weight-bear as tolerated on both legs. She will likely need a walker for ambulatory assistance. Due to her right wrist pain, she may require a platform walker to weight-bear through the right elbow. 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 No acute fractures are seen. Would recommend a removable wrist brace for comfort and support. She may follow-up in orthopedics clinic 1 to 2 weeks after discharge. Call [phone] to make an appointment. Present on Admission?: Yes History of Present Illness Reason for Consultation: Pelvis fracture Attending Physician: Jerrell Arreaga MD History of Present Illness Ms. Camargo is an 83-year-old female who was climbing on a ladder while painting and as she was coming down off the ladder, she missed the last rung. She fell onto her right side, and hyperflexed the right wrist under her body as she fell. She initially had pain in the right groin area. She was able to ambulate immediately after the fall, although with a limp. The right groin pain progressively worsened over the next few hours. She initially did not notice any significant right wrist pain, but this then became more painful and stiff over the next day. The pelvis pain eventually got severe enough that she was unable to ambulate and called the ambulance in the middle the night. Allergies Allergy/AdvReac Type Severity Reaction Status Date / Time Iodinated Contrast Media Allergy Unknown Unknown - Verified 03/03/19 04:33 too long ago lisinopril AdvReac Mild COUGH Verified 03/03/19 04:33 paroxetine AdvReac Mild HEADACHE Verified 03/03/19 04:33 Home Medications Home Medications Medication Instructions Recorded Confirmed Type cetirizine 10 mg tablet 10 mg PO DAILY PRN tab 04/15/18 03/03/19 History dexlansoprazole 60 mg 60 mg PO DAILY 04/15/18 03/03/19 History capsule,biphase delayed release multivitamin capsule 1 cap PO DAILY 04/15/18 03/03/19 History hydrochlorothiazide 25 mg tablet 25 mg PO DAILY #90 tab 10/22/18 03/03/19 Rx venlafaxine ER 150 mg 150 mg PO DAILY #90 cap 12/20/18 03/03/19 Rx capsule,extended release 24 hr aspirin 81 mg tablet,delayed 81 mg PO DAILY tab 02/14/19 03/03/19 History release atenolol 50 mg tablet 50 mg PO DAILY #90 tab 02/14/19 03/03/19 History atorvastatin 80 mg tablet 80 mg PO QPM #90 tab 02/14/19 03/03/19 History calcium carbonate 200 mg calcium 200 mg PO DAILY tab 02/14/19 03/03/19 History (500 mg) chewable tablet celecoxib 200 mg capsule 200 mg PO DAILY #90 cap 02/14/19 03/03/19 History clobetasol 0.05 % topical cream 1 appln TOPICAL BID #3 gm 02/14/19 03/03/19 History melatonin 5 mg capsule 1 cap PO .TAKE 1 CAPSULE Bedti cap 02/14/19 03/03/19 History metformin 500 mg tablet See Rx Instructions PO BID tab 02/14/19 03/03/19 History olmesartan 40 mg tablet 40 mg PO DAILY #90 tab 02/14/19 03/03/19 History alendronate 70 mg PO WK 03/03/19 03/03/19 History anastrozole 1 mg PO DAILY 03/03/19 03/03/19 History gabapentin 300 mg PO TID 03/03/19 03/03/19 History venlafaxine 75 mg PO DAILY 03/03/19 03/03/19 History Patient History Medical History Breast cancer Heart disease History of myocardial infarction (Acute) 1987 Invasive ductal carcinoma of breast (Acute) Left CAD (coronary artery disease) (Chronic) Cardiomyopathy (Chronic) Depression (Chronic) Diabetes mellitus, type II (Chronic) Diabetic peripheral neuropathy (Chronic) Dyslipidemia (Chronic) GERD (gastroesophageal reflux disease) (Chronic) Gastroparesis (Chronic) Hypercalcemia (Chronic) Hyperhidrosis (Chronic) Hypertension (Chronic) Insomnia (Chronic) Osteoarthritis (Chronic) Osteopenia (Chronic) Port-A-Cath in place (Chronic) Left Presence of drug coated stent in LAD coronary artery (Chronic) Raynauds phenomenon (Chronic) Bilat Toes Seborrheic keratosis (Chronic) History of basal cell carcinoma (Resolved) Leg History of chemotherapy (Resolved) TCH x 6 Cycles (C was Cylophosphomide), Herceptin x 1 year (q 3 weeks) Surgical History History of cardiac cath (Resolved) 2007 History of gastric surgery (Resolved) 1978 - Part of stomach and duodenum removed History of total mastectomy of left breast (Resolved) & SLN Biopsy - 10/07/17 Family History Grandmother (Maternal) , Passed in 80's of old age Colon cancer Mother , Passed age 92 of heart failure No problems noted. Father , Passed age 81 of heart failure No problems noted. Sister , Passed age 75 of colon CA Breast cancer, Onset Age: 60 Lumpectomy & Radiation Son No problems noted. Son No problems noted. 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 Awake, alert, and oriented x 3. Appropriate mood and affect. Gait and station not assessed due to the known pelvis fracture. Normal coordination and balance. Skin: The skin over the right hip shows no open wounds. No open wounds over the right wrist. Inspection/Palpation: Visual inspection reveals no gross deformity of the right wrist or pelvis. There is [mild] swelling and tenderness to palpation in the right wrist. Compartments are soft and compressible. Range of Motion: Right wrist range of motion is limited due to pain. Stability: No gross ligamentous instability. Strength: Hip and wrist strength is limited due to pain. Intact ankle dorsiflexion and plantarflexion. Intact finger extension and flexion. Sensation: The patient reports no numbness in the leg or hand. Vascular: Leg is warm and well perfused. No diffuse edema. Results & Data Vital Signs (Past 12 Hours) Vital Signs Temp Pulse Pulse Resp BP BP Pulse Ox 03/03/19 07:16 36.3 C L 71 16 133/71 95 03/03/19 06:20 155/82 H 10/31/19 04:40 37 C 80 16 177/84 H 96 03/03/19 04:03 70 18 162/99 H 99 03/03/19 01:47 76 17 167/82 H 97 03/03/19 01:10 37.0 C 81 16 188/108 H 97 Diagnostic Findings Pelvis x-rays and CT scan were reviewed. They show nondisplaced superior and inferior right pubic rami fracture. No associated sacral fracture is seen. X-rays of the right wrist show severe arthritic degeneration, especially in the radio-lunate joint. There is subchondral cyst formation related to the arthritis. 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 No obvious acute fracture. (1) Fractured pelvis Encounter type: initial encounter Fracture alignment: without disruption of pelvic ring Fracture type: closed Pelvic bone location: multiple parts Qualified Code(s): S32.82XA - Multiple fractures of pelvis without disruption of pelvic ring, initial encounter for closed fracture
[2019-03-03] MEDS: MoRPHine SULFATE 4 MG/ML 1 ML CARP\\VIAL IV PRN ×2 (13:17→19:22)
--- NOTE | 2019-03-03 16:29 | Hospitalist Progress Note ---
Date of Service March 03, 2019 Assessment & Plan (1) Fall: Patient is an 83-year-old female who presents for evaluation after a fall, found to have pelvic rami fracture, right SLAC wrist Mechanical Fall Ambulatory dysfunction Pelvic fracture Right wrist SLAC Hip CT:Minimally displaced fractures involving the right superior and inferior pubic rami. Pelvic CT:Acute nondisplaced right ischio pubic ring fracture. R Wrist X ray: No acute fractures. Moderate arthritic changes with evidence of a radius scaphoid lunate ligamentous disruption Appreciate Orthopedics Input Weightbearing as tolerated, Pain control Removable wrist brace for comfort and support PT OT eval Fall precaution May need rehab placement Needs follow-up with orthopedics upon discharge HTN: Blood pressure elevated likely situational secondary to pain Continue atenolol, HCTZ, olmesartan Clonidine as needed Monitor blood pressure DM II: Last hemoglobin A1c 6.4 Hold home p.o. meds Continue insulin sliding scale while hospitalized Monitor blood glucose levels H/O CAD S/P stent Continue aspirin,Lipitor, beta tatyana GERD Continue PPI Hyperlipidemia on statin Depression On venlafaxine H/O Breast cancer S/P left simple mastectomy on Anastrozole DVT Px: Heparin SQ CODE STATUS Full code Disposition: PT/OT prior to discharge. Social service consulted Subjective Patient is seen and examine ernesto bedside Denies any pelvic pain while at rest Complains of right wrist pain since the fall Denies any chest pain, shortness of breath, dizziness, nausea, abdominal pain Reports chronic numbness and tingling in bilateral feet which is unchanged per patient Family at bedside Offers no other complaints Review of Systems Review of Systems: All systems reviewed & are unremarkable except as noted in HPI & below Physical Exam Physical Exam: Physical Exam: Vitals signs as noted above General Appearance:Moderately built and nourished, no apparent distress Head: normocephalic, Atraumatic Eyes: normal inspection, EOMI Neck: supple, Trachea midline Respiratory/Chest: Normal breath sounds, CTA Cardiovascular: S1, S2, No murmur Abdomen/GI:Soft, Non tender, Bowel sounds present Extremities/Musculoskelatal:normal inspection, no edema, R wrist tender, decreased ROM, limited pelvic exam secondary to fracture Neurologic/Psych:AAOX3, grossly no focal neurological deficits Skin: normal color, warm Results & Data Vital Signs (Past 12 Hours) Vital Signs Temp Pulse Resp BP Pulse Ox 03/03/19 15:05 36.7 C 62 16 183/74 H 92 03/03/19 07:16 36.3 C L 71 16 133/71 95 03/03/19 06:20 155/82 H 03/03/19 04:40 37 C 80 16 177/84 H 96 Laboratory Results Short CBC 03/03/19 Range/Units 01:40 WBC 10.68 (4.8-10.8) K/uL Hgb 11.6 L (12.0-16.0) g/dL Hct 34.6 L (37-47) % Plt Count 172 (130-400) K/uL BMP 03/03/19 01:40 Sodium 136 Potassium 3.4 L Chloride 101 Carbon Dioxide 27 BUN 18 Creatinine 0.92 Glucose 125 H Calcium 9.1 (1) Fall Encounter type: initial encounter Qualified Code(s): W19.XXXA - Unspecified fall, initial encounter
[2019-03-03] MEDS: KETOROLAC TROMETHAMINE 15 MG/ML VIAL IV PRN (19:10)
[2019-03-03] MEDS: ATORVASTATIN 40 MG TAB PO SCH (21:37)
[2019-03-04] MEDS: HEPARIN SOD 5,000 UNIT/0.5 ML VIAL SQ SCH ×3 (05:50→21:11)
[2019-03-04 06:23] LABS: Basophils # (auto) 0.01 K/uL (0-0.2); Basophils % (auto) 0.1 %; Eosinophils # (auto) 0.08 K/uL (0-0.5); Eosinophils % (auto) 0.9 %; Immature Granulocytes # (auto) 0.02 K/uL (0.00-0.02); Immature Granulocytes % (auto) 0.2 %; Lymphocytes # (auto) 1.01 K/uL (1.2-3.4); Lymphocytes % (auto) 11.3 %; Mean Corpuscular Hemoglobin 28.9 pg (25-34); Mean Corpuscular Hgb Conc 34.4 g/dL (32-36); Mean Corpuscular Volume 84.2 fL (80-100); Mean Platelet Volume 10.6 fL (7.4-10.4); Monocytes # (auto) 0.98 K/uL (0.11-0.59); Monocytes % (auto) 10.9 %; Neutrophils # (auto) 6.85 K/uL (1.4-6.5); Neutrophils % (auto) 76.6 %; Platelet Count 159 K/uL (130-400); RDW Coefficient of Variation 14.1 % (11.5-14.5); RDW Standard Deviation 43.2 fL (36.4-46.3); White Blood Count 8.95 K/uL (4.8-10.8)
[2019-03-04 06:58] LABS: BUN Creatinine Ratio 23.6 (10-20); Calcium 8.6 mg/dl (8.5-10.1); Creatinine Clr Calc Pharmacy 50.6 ml/min; Est GFR (African American) 94.2; Est GFR (Non-African American) 81.3; Magnesium 1.7 mg/dl (1.8-2.4); Potassium 3.6 mmol/L (3.5-5.1)
[2019-03-04 07:19] LABS: Estimated Average Glucose 137 mg/dl; Hemoglobin A1C 6.4 % (4.5-5.6)
[2019-03-04] MEDS: CLOBETASOL PROPIONATE 0.05% OINT 15 GM TUBE EXT SCH ×2 (09:09→20:32)
[2019-03-04] MEDS: CALCIUM CARBONATE 500 MG CHEWABLE TAB PO SCH (09:09)
[2019-03-04] MEDS: ASPIRIN 81 MG ECTAB PO SCH (09:10)
[2019-03-04] MEDS: MULTIVITAMIN TAB PO SCH (09:10)
[2019-03-04] MEDS: PANTOprazole 40 MG TAB PO SCH (09:10)
[2019-03-04] MEDS: VENLAFAXINE HCL XR 75 MG CAPXR PO SCH (09:10)
[2019-03-04] MEDS: VENLAFAXINE HCL XR 150 MG CAPXR PO SCH (09:10)
[2019-03-04] MEDS: GABAPENTIN 300 MG CAP PO SCH ×3 (09:10→20:33)
[2019-03-04] MEDS: ATENOLOL 50 MG TABLET PO SCH (09:11)
[2019-03-04] MEDS: hydroCHLOROthiazide 25 MG TAB PO SCH (09:11)
[2019-03-04] MEDS: ANASTROZOLE 1 MG TAB PO SCH (09:12)
[2019-03-04] MEDS: INSULIN ASPART 100 UNITS/ML 3 ML PEN SC SCH ×4 (09:12→21:10)
[2019-03-04] MEDS ORDERED: SODIUM CHLORIDE 0.9% 1000ML 1,000 ML IV ONE (09:38)
[2019-03-04] MEDS ORDERED: NSS + 20MEQ KCL 20 MEQ/1,000 ML BAG IV ONE (09:39)
[2019-03-04] MEDS: OLMESARTAN MEDOXOMIL 40 MG TAB PO SCH (10:23)
[2019-03-04] MEDS: MAGNESIUM OXIDE 400 MG TAB PO SCH ×2 (12:58→20:32)
[2019-03-04] MEDS: KETOROLAC TROMETHAMINE 15 MG/ML VIAL IV PRN (15:55)
[2019-03-04] MEDS: OXYCODONE HCL IR 5 MG TAB (IMMEDIATE RELEASE) PO PRN (16:32)
--- NOTE | 2019-03-04 16:48 | Hospitalist Progress Note ---
Date of Service March 04, 2019 Assessment & Plan (1) Fall: Patient is an 83-year-old female who presents for evaluation after a fall, found to have pelvic rami fracture, right SLAC wrist Mechanical Fall Ambulatory dysfunction Pelvic fracture Right wrist Likely SLAC (Scaphoid Lunate Advanced Collapse) Hip CT:Minimally displaced fractures involving the right superior and inferior pubic rami. Pelvic CT:Acute nondisplaced right ischio pubic ring fracture. R Wrist X ray: No acute fractures. Moderate arthritic changes with evidence of a radius scaphoid lunate ligamentous disruption Appreciate Orthopedics Input Weightbearing as tolerated, Pain control Removable wrist brace for comfort and support PT OT eval Fall precaution Needs rehab placement when stable Needs follow-up with orthopedics upon discharge in 1-2 weeks Hyponatremia Chronic Hyponatremia on prior labs Hold HCTZ Sodium levels: 129 today Continue gentle IV fluids Monitor sodium levels Hypomagnesemia Replace electrolytes as needed HTN: Continue atenolol, olmesartan HCTZ on hold Clonidine as needed Monitor blood pressure DM II: Last hemoglobin A1c 6.4 Hold home p.o. meds Continue insulin sliding scale while hospitalized Monitor blood glucose levels H/O CAD S/P stent Continue aspirin,Lipitor, beta tatyana GERD Continue PPI Hyperlipidemia on statin Depression On venlafaxine H/O Breast cancer S/P left simple mastectomy on Anastrozole DVT Px: Heparin SQ CODE STATUS Full code Disposition: Needs Rehab placement Social service consulted Subjective Patient is seen and examine ernesto bedside Wrist pain and ROM better today Hip/pelvic pain is controlled Denies any chest pain, SOB, dizziness, nausea, abdominal pain Offers no other complaints Review of Systems Review of Systems: All systems reviewed & are unremarkable except as noted in HPI & below Physical Exam Physical Exam: Physical Exam: Vitals signs as noted above General Appearance:Moderately built and nourished, no apparent distress Head: normocephalic, Atraumatic Eyes: normal inspection, EOMI Neck: supple, Trachea midline Respiratory/Chest: Normal breath sounds, CTA Cardiovascular: S1, S2, No murmur Abdomen/GI:Soft, Non tender, Bowel sounds present Extremities/Musculoskelatal:normal inspection, no edema, R wrist tender, decreased ROM, limited pelvic exam secondary to fracture Neurologic/Psych:AAOX3, grossly no focal neurological deficits Skin: normal color, warm Results & Data Vital Signs (Past 12 Hours) Vital Signs Temp Pulse Resp BP Pulse Ox 03/04/19 15:41 36.8 C 73 17 146/73 H 97 03/04/19 11:05 95 03/04/19 07:12 36.6 C 63 16 97/55 L 95 Laboratory Results Short CBC 03/04/19 Range/Units 05:30 WBC 8.95 (4.8-10.8) K/uL Hgb 11.0 L (12.0-16.0) g/dL Hct 32.0 L (37-47) % Plt Count 159 (130-400) K/uL BMP 03/04/19 05:30 Sodium 129 L D Potassium 3.6 Chloride 95 L Carbon Dioxide 26 BUN 16 Creatinine 0.70 Glucose 126 H Calcium 8.6 (1) Fall Encounter type: initial encounter Qualified Code(s): W19.XXXA - Unspecified fall, initial encounter
[2019-03-04] MEDS: ATORVASTATIN 40 MG TAB PO SCH (20:33)
[2019-03-05] MEDS: HEPARIN SOD 5,000 UNIT/0.5 ML VIAL SQ SCH (05:45)
[2019-03-05 06:45] LABS: Hematocrit (blood only) 31.4 % (37-47); Hemoglobin 10.7 g/dL (12.0-16.0)
[2019-03-05 07:28] LABS: BUN Creatinine Ratio 20.6 (10-20); Calcium 8.8 mg/dl (8.5-10.1); Creatinine Clr Calc Pharmacy 52.9 ml/min; Est GFR (African American) 95.5; Est GFR (Non-African American) 82.4; Magnesium 2.1 mg/dl (1.8-2.4); Potassium 3.4 mmol/L (3.5-5.1)
[2019-03-05] MEDS: PANTOprazole 40 MG TAB PO SCH (08:46)
[2019-03-05] MEDS: GABAPENTIN 300 MG CAP PO SCH ×3 (08:46→20:02)
[2019-03-05] MEDS: VENLAFAXINE HCL XR 150 MG CAPXR PO SCH (08:46)
[2019-03-05] MEDS: ATENOLOL 50 MG TABLET PO SCH (08:46)
[2019-03-05] MEDS: MULTIVITAMIN TAB PO SCH (08:46)
[2019-03-05] MEDS: VENLAFAXINE HCL XR 75 MG CAPXR PO SCH (08:47)
[2019-03-05] MEDS: ANASTROZOLE 1 MG TAB PO SCH (08:47)
[2019-03-05] MEDS: MAGNESIUM OXIDE 400 MG TAB PO SCH ×2 (08:47→20:01)
[2019-03-05] MEDS: CALCIUM CARBONATE 500 MG CHEWABLE TAB PO SCH (08:47)
[2019-03-05] MEDS: CLOBETASOL PROPIONATE 0.05% OINT 15 GM TUBE EXT SCH ×2 (08:47→20:00)
[2019-03-05] MEDS: OLMESARTAN MEDOXOMIL 40 MG TAB PO SCH (08:47)
[2019-03-05] MEDS: ASPIRIN 81 MG ECTAB PO SCH (08:47)
[2019-03-05] MEDS: INSULIN ASPART 100 UNITS/ML 3 ML PEN SC SCH ×4 (08:48→20:58)
--- NOTE | 2019-03-05 10:54 | Hospitalist Progress Note ---
Date of Service March 05, 2019 Assessment & Plan (1) Pelvic ring fracture: mechanical fall from a ladder, s/p pelvic fracture. Ambulatory dysfunction but is able to bear weight. WBAT with walker per Ortho. Going to rehab after hospitalization. Insurance auth is pending. Cont pain control and ambulate as tolerated. (2) SLAC (scapholunate advanced collapse) of wrist: Cont brace for comfort. Ortho follow-up in 2 weeks. (3) HTN (hypertension): BP around goal, Cont holding home HCTZ 25mg daily. Cont Atenolol 50mg PO daily, Olmesartan 40mg PO daily all per home regimen. Cont good pain control e fforts. Low sodium diet. (4) Hyponatremia: Possibly 2/2 diuretic therapy with above injury. HCTZ is on hold with Na improved from 129 to 132 this am. BP around goal as above. Cont to hold HCTZ and trend Na one more day. (5) Breast cancer: Recently finished chemotherapy two months ago, and has been feeling well. Cont anastrozole per home regimen. (6) DMII (diabetes mellitus, type 2): glucose controlled, cont Novolog with sliding scale correction and carb coverage. Cont holding metformin. (7) CAD (coronary artery disease): s/p stent in the past, stable, no ACS symptoms. Cont medical management per home regimen including ASA 81mg daily, Olmesartan 40mg daily, Lipitor 80mg HS, Atenolol 50mg daily. (8) DVT prophylaxis: Heparin is causing localized bleeding. Switch to once daily Lovenox starting this evening. Full Code Dispo-rehab pending insurance authorization, likely dc on thursday. Natalie Mclean DO [facility] Hospitalist Subjective 83-year-old female status post mechanical fall to the right side with subsequent slack injury to right wrist and pelvic fracture. Pain is reported to be controlled with medications. She is taking gabapentin with last use of oxycodone yesterday afternoon at 430. She is weightbearing as tolerated with her walker, but realizes she needs to much help to go home at this point. She is awaiting authorization to [place] after the weekend. She denies any chest pain, shortness of breath, abdominal pain. She is tolerating p.o. She had a moderate formed brown stool this morning. She is a diabetic and glucose has been at goal. Review of Systems Review of Systems: All systems reviewed & are unremarkable except as noted in HPI & below Physical Exam Physical Exam: CONSTITUTIONAL: WNWD, vitals as above, generally well- appearing, moves slowly in the bed-guarded movements of right wrist EYES: normal conjunctivae, no scleral icterus ENT: MMM RESPIRATORY: clear to auscultation bilaterally, no crackles, rales or wheezes, normal respiratory effort CARDIOVASCULAR: regular rate and rhythm, S1 and 2 heard without murmurs, gallops or rubs, no JVD, no peripheral edema GASTROINTESTINAL: normal bowel sounds, soft, nontender, nondistended MUSCULOSKELETAL: limited movement of lower extremities but able to move both feet. Head is normocephalic and atraumatic SKIN: warm and dry NEUROLOGIC: CN 2-12 grossly intact, normal cognition, no gross focal deficits. PSYCHIATRIC: alert cooperative and oriented to person, place and time. Results & Data Vital Signs (Past 12 Hours) Vital Signs Temp Pulse Resp BP Pulse Ox 03/05/19 07:29 36.9 C 81 18 146/69 H 97 03/04/19 23:33 37.2 C 75 15 146/74 H 97 Laboratory Results Short CBC 03/05/19 Range/Units 06:22 Hgb 10.7 L (12.0-16.0) g/dL Hct 31.4 L (37-47) % BMP 03/05/19 06:22 Sodium 132 L Potassium 3.4 L Chloride 98 Carbon Dioxide 27 BUN 14 Creatinine 0.67 Glucose 157 H Calcium 8.8 Medications Administered Current Inpatient Medications Acetaminophen (Tylenol) 650 mg PO Q4H PRN PRN Reason: pain/fever Stop: 04/02/19 05:14 Last Admin: 03/03/19 17:03 Dose: 650 mg Documented by: Anastrozole (Arimidex) 1 mg PO DAILY [facility] Stop: 04/02/19 08:59 Last Admin: 03/05/19 08:47 Dose: 1 mg Documented by: Aspirin (Ecotrin Ectab) 81 mg PO DAILY [facility] Stop: 04/02/19 08:59 Last Admin: 03/05/19 08:47 Dose: 81 mg Documented by: Atenolol (Tenormin) 50 mg PO DAILY [facility] Stop: 04/02/19 08:59 Last Admin: 03/05/19 08:46 Dose: 50 mg Documented by: Atorvastatin Calcium (Lipitor) 80 mg PO QPM [facility] Stop: 04/02/19 20:59 Last Admin: 03/04/19 20:33 Dose: 80 mg Documented by: Calcium Carbonate (Tums) 500 mg PO DAILY [facility] Stop: 04/02/19 08:59 Last Admin: 03/05/19 08:47 Dose: Not Given Documented by: Cetirizine HCl (Zyrtec) 10 mg PO DAILY PRN PRN Reason: Allergic Reaction Stop: 04/02/19 05:14 Last Admin: 03/03/19 09:16 Dose: 10 mg Documented by: Clobetasol Propionate (Clobetasol Propionate Oint) 1 appln EXT BID [facility] Stop: 04/02/19 08:59 Last Admin: 03/05/19 08:47 Dose: Not Given Documented by: Clonidine HCl (Catapres) 0.1 mg PO Q4H PRN PRN Reason: Hypertension Stop: 04/02/19 05:14 Last Admin: 03/03/19 17:18 Dose: 0.1 mg Documented by: Dextrose (Dextrose 50%) 25 - 50 ml IV UD PRN; Protocol PRN Reason: Hypoglycemia Protocol Stop: 04/02/19 05:29 Gabapentin (Neurontin) 300 mg PO TID [facility] Stop: 04/02/19 08:59 Last Admin: 03/05/19 08:46 Dose: 300 mg Documented by: Glucagon (Glucagen) 1 mg SQ UD PRN; Protocol PRN Reason: Hypoglycemia Protocol Stop: 04/02/19 05:29 Glucose (Glucose 40%) 15 - 30 gm PO UD PRN; Protocol PRN Reason: Hypoglycemia Protocol Stop: 04/02/19 05:29 Glucose (Dex4 Glucose) 4 - 8 tabs PO UD PRN; Protocol PRN Reason: Hypoglycemia Protocol Stop: 04/02/19 05:29 Heparin Sodium (Porcine) (Heparin Sodium (Porcine)) 5,000 units SQ Q8 ENIO Stop: 04/02/19 05:59 Last Admin: 03/05/19 05:45 Dose: 5,000 units Documented by: Hydrochlorothiazide (Hctz) 25 mg PO DAILY [facility] Stop: 04/02/19 08:59 Last Admin: 03/04/19 09:11 Dose: 25 mg Documented by: Insulin Aspart (Novolog Flexpen) 0 units SC ACHS [facility] Stop: 04/02/19 07:29 Last Admin: 03/05/19 08:48 Dose: 4 units Documented by: Ketorolac Tromethamine (Toradol) 15 mg IV Q6H PRN PRN Reason: Pain Stop: 03/05/19 18:17 Last Admin: 03/04/19 15:55 Dose: 15 mg Documented by: Magnesium Oxide (Mag-Ox) 400 mg PO BID [facility] Stop: 03/06/19 09:59 Last Admin: 03/05/19 08:47 Dose: 400 mg Documented by: Miscellaneous (Carbohydrates For Hypoglycemia) 15 - 30 gm PO UD PRN PRN Reason: Hypoglycemia Treatment Stop: 04/02/19 05:29 Morphine Sulfate (Morphine Sulfate) 3 mg IV Q6H PRN PRN Reason: Severe Pain Stop: 03/17/19 05:14 Last Admin: 03/03/19 19:22 Dose: 3 mg Documented by: Multivitamins (Multivitamin Tab) 1 tab PO QAM [facility] Stop: 04/02/19 08:59 Last Admin: 03/05/19 08:46 Dose: 1 tab Documented by: Olmesartan (Benicar) 40 mg PO DAILY [facility] Stop: 04/02/19 08:59 Last Admin: 03/05/19 08:47 Dose: 40 mg Documented by: Ondansetron HCl (Zofran) 4 mg IV Q6H PRN PRN Reason: Nausea Stop: 04/02/19 05:14 Oxycodone HCl (Roxicodone Immediate Rel) 5 mg PO Q4H PRN PRN Reason: Pain Stop: 03/17/19 05:14 Last Admin: 03/04/19 16:32 Dose: 5 mg Documented by: Pantoprazole Sodium (Protonix) 40 mg PO DAILY [facility] Stop: 04/02/19 08:59 Last Admin: 03/05/19 08:46 Dose: 40 mg Documented by: Polyethylene Glycol (Miralax Powder Packet) 17 gm PO DAILY PRN PRN Reason: Constipation Stop: 04/02/19 05:14 Venlafaxine HCl (Effexor Extended Release) 75 mg PO DAILY [facility] Stop: 04/02/19 08:59 Last Admin: 03/05/19 08:47 Dose: 75 mg Documented by: Venlafaxine HCl (Effexor Extended Release) 150 mg PO DAILY [facility] Stop: 04/02/19 08:59 Last Admin: 03/05/19 08:46 Dose: 150 mg Documented by:
[2019-03-05] MEDS ORDERED: cloNIDine HCl 0.1 MG TAB PO PRN (11:10)
[2019-03-05] MEDS: OXYCODONE HCL IR 5 MG TAB (IMMEDIATE RELEASE) PO PRN (11:20)
[2019-03-05] MEDS: KETOROLAC TROMETHAMINE 15 MG/ML VIAL IV PRN (15:10)
[2019-03-05] MEDS: ATORVASTATIN 40 MG TAB PO SCH (20:01)
[2019-03-05] MEDS ORDERED: ENOXAPARIN INJ 40 MG/0.4 ML SYR SQ SCH (21:00)
[2019-03-06 06:19] LABS: BUN Creatinine Ratio 32.5 (10-20); Calcium 8.5 mg/dl (8.5-10.1); Creatinine Clr Calc Pharmacy 53.7 ml/min; Est GFR (Non-African American) 82.8; Potassium 3.7 mmol/L (3.5-5.1)
[2019-03-06] MEDS: CALCIUM CARBONATE 500 MG CHEWABLE TAB PO SCH (09:11)
[2019-03-06] MEDS: CLOBETASOL PROPIONATE 0.05% OINT 15 GM TUBE EXT SCH (09:11)
[2019-03-06] MEDS: OXYCODONE HCL IR 5 MG TAB (IMMEDIATE RELEASE) PO PRN (09:11)
[2019-03-06] MEDS: VENLAFAXINE HCL XR 150 MG CAPXR PO SCH (09:12)
[2019-03-06] MEDS: ANASTROZOLE 1 MG TAB PO SCH (09:12)
[2019-03-06] MEDS: GABAPENTIN 300 MG CAP PO SCH ×2 (09:12→13:02)
[2019-03-06] MEDS: MULTIVITAMIN TAB PO SCH (09:12)
[2019-03-06] MEDS: VENLAFAXINE HCL XR 75 MG CAPXR PO SCH (09:12)
[2019-03-06] MEDS: PANTOprazole 40 MG TAB PO SCH (09:12)
[2019-03-06] MEDS: OLMESARTAN MEDOXOMIL 40 MG TAB PO SCH (09:12)
[2019-03-06] MEDS: ATENOLOL 50 MG TABLET PO SCH (09:12)
[2019-03-06] MEDS: INSULIN ASPART 100 UNITS/ML 3 ML PEN SC SCH ×2 (09:13→13:01)
[2019-03-06] MEDS: MAGNESIUM OXIDE 400 MG TAB PO SCH (09:13)
[2019-03-06] MEDS: ASPIRIN 81 MG ECTAB PO SCH (09:13)
[2019-03-06] MEDS: ACETAMINOPHEN 325 MG TAB PO PRN (12:12)
--- NOTE | 2019-03-07 08:43 | Discharge Summary ---
Date of Service 03/03/19-03/06/19 Admission HPI Per Admitting Provider HISTORY OF PRESENT ILLNESS: This is an 83-year-old female with past medical history significant for type 2 diabetes, hyperlipidemia, allergic rhinitis, CAD status post stents, hypertension, GERD, dermatitis, history of osteoporosis, depression, history of breast cancer status post left simple mastectomy, who lives with her , who comes with a fall. The patient was on the ladder painting her house. When getting down the second step, she somehow lost balance and fell sideways. Eventually, she was able to get up with the help of her , but she could not put weight on the legs because of severe pain, so she came to the ER. She did not hit her head, no loss of consciousness. In the ER, imaging studies showed pubic rami fracture. The patient denies any other complaints. Until this happened, she was able to ambulate without any help. Denies any headache. No dizziness, no blurred visions, no earache, no runny nose, no sore throat, no difficulty swallowing. No chest pain, no shortness of breath, no cough, no fever, no chills. Sleeps okay. No recent weight gain or weight loss. No nausea, no vomiting, no abdominal pain. Normal bowel and bladder movements. No hematuria, no hematochezia, no black stools. No rash. Currently resting comfortably and hemodynamically stable. Admission Exam Per Admitting Provider PHYSICAL EXAMINATION: GENERAL: The patient is of moderate build, not in acute distress. VITAL SIGNS: Temperature 37, pulse 70, respiratory rate 18, blood pressure 162/99, and oxygen 99% on room air. HEENT: No pallor, no icterus. Pupils equal, round, reactive to light. NECK: No JVD, no neck masses, no carotid bruits. CARDIOVASCULAR: S1, S2 heard, regular rate and rhythm, no murmur, no gallop. RESPIRATORY SYSTEM: Normal AP diameter. No accessory muscle use. No wheezing, no crackles. ABDOMEN: Soft, bowel sounds present, nontender. No distention. CENTRAL NERVOUS SYSTEM: Cranial nerves II-XII grossly intact, nonfocal. EXTREMITIES: No edema, no erythema. Painful movements of the lower extremities remains on the right side. Principal Diagnosis Fall with Pelvic ring fracture and SLAC injury to R wrist Ambulatory dysfunction Hypertension Hyponatremia-improved Discharge Exam CONSTITUTIONAL: WNWD, vitals as above, generally well-appearing, guarded movements of right wrist which is in a brace today. EYES: normal conjunctivae, no scleral icterus ENT: MMM RESPIRATORY: clear to auscultation bilaterally, no crackles, rales or wheezes, normal respiratory effort CARDIOVASCULAR: regular rate and rhythm, S1 and 2 heard without murmurs, gallops or rubs, no JVD, no peripheral edema GASTROINTESTINAL: normal bowel sounds, soft, nontender, nondistended MUSCULOSKELETAL: limited movement of lower extremities but able to move symmetrically. Neurovascularly intact. Head is normocephalic and atraumatic. Right wrist with swelling in wrist area and limited range of motion. SKIN: warm and dry NEUROLOGIC: CN 2-12 grossly intact, normal cognition, no gross focal deficits. PSYCHIATRIC: alert cooperative and oriented to person, place and time. Discharge Data Allergies Allergy/AdvReac Type Severity Reaction Status Date / Time Iodinated Contrast Media Allergy Unknown Unknown - Verified 03/03/19 04:33 too long ago lisinopril AdvReac Mild COUGH Verified 03/03/19 04:33 paroxetine AdvReac Mild HEADACHE Verified 03/03/19 04:33 Consultations 03/03/19 04:34 ED Decision to Admit Stat 03/03/19 05:15 Consult Case Management - Discharge Planning Routine 03/03/19 08:00 Consult Orthopedic Surgery Routine Ordered Studies 03/03/19 04:39 CT pelvis wo con Urgent 03/03/19 04:40 CT hip RT wo con Urgent Hospital Course (1) Pelvic ring fracture: mechanical fall from a ladder, s/p pelvic fracture. Ambulatory dysfunction but is able to bear weight. WBAT with walker per Ortho with follow- up in 1 to 2 weeks. Going to rehab after hospitalization. Pain is well controlled with oxycodone. Plan to restart home Celebrex at time of discharge. (2) SLAC (scapholunate advanced collapse) of wrist: Cont brace for comfort. Ortho follow-up in 2 weeks. (3) HTN (hypertension): BP around goal, plan to restart home HCTZ at 12.5 mg daily. This will hopefully achieve good blood control without the side effects. Cont Atenolol 50mg PO daily, Olmesartan 40mg PO daily all per home regimen. Cont good pain control efforts. Low sodium diet. (4) Hyponatremia: Possibly 2/2 diuretic therapy with above injury. HCTZ was held with improvement in sodium from 129 to 132. Plan to restart HCTZ as above. (5) Breast cancer: Recently finished chemotherapy two months ago, and has been feeling well. Cont anastrozole per home regimen. (6) DMII (diabetes mellitus, type 2): Glucose was controlled with Novolog with sliding scale correction and carb coverage while hospitalized. Restart metformin at time of discharge. (7) CAD (coronary artery disease): s/p stent in the past, stable, no ACS symptoms. Cont medical management per home regimen including ASA 81mg daily, Olmesartan 40mg daily, Lipitor 80mg HS, Atenolol 50mg daily. Total Time Total Time Spent Total Time Spent (In Minutes): 60 Total Time Includes: Examination of the Patient, Discharge Planning, Medication Reconciliation and Communication With Other Providers Discharge Plan Discharge Items Patient Disposition: Transfer [facility] Reason For Visit: FALL Discharge Diagnosis: Fall with Pelvic ring fracture and SLAC injury to R wrist Ambulatory dysfunction Hypertension Hyponatremia-improved Condition on Discharge: Good Activity: As commented below Activity Comment: per receiving facility therapists Non-emergency contact: Primary Care Provider Call non-emergency contact if: you have any medication questions, your symptoms worsen, your pain is not controlled, your pain is worsening, your pain is unusual for you, your pain is concerning for you and you have a fever Follow-up/Referrals: Angel Zaidi DO [Primary Care Provider] - Emery Norton M.D. [Physician] - Diet: Carb Consistent or DM2 and Low Sodium (2gm) Addtl Attending Provider Instructions: Please take all medications as instructed on discharge list below. You are being placed back on your Celebrex which should help with your wrist pain. If this is not effective, please consider the scheduled Tylenol (1000mg every 8 hours) as we discussed. Please follow-up with Orthopedics in 1 to 2 weeks. Please call [phone] to make an appointment. It is recommended that you follow-up with your primary care provider within one week of discharge home. It was a pleasure taking care of you! Please call if you have any questions or problems. You can reach a [facility] hospitalist on duty at [facility] 24 hours a day by calling [phone]. Take care of yourself. Natalie Mclean DO [facility] Hospitalist Pending Studies at Discharge: No Stand-Alone Forms: [facility] Skilled Items Patient informed of condition?: Yes DNR: No Discharge Level of Care: Skilled Communicable Disease: No Discharge Prognosis: Stable Lines: None Urinary Catheter: No Medications and DC Order Prescriptions: New oxycodone 5 mg Tablet 5 mg PO Q4H PRN (Reason: severe pain) Qty: 20 RF: 0 hydrochlorothiazide 25 mg Tablet 12.5 mg PO DAILY Qty: 30 RF: 1 Continued dexlansoprazole [Dexilant] 60 mg capsule,biphase delayed releas 60 mg PO DAILY RF: 0 multivitamin capsule 1 cap PO DAILY RF: 0 cetirizine [Zyrtec] 10 mg tablet 10 mg PO DAILY PRN (Reason: Allergy Symptoms) RF: 0 venlafaxine 150 mg capsule,extended release 24hr 150 mg PO DAILY Qty: 90 RF: 3 celecoxib 200 mg capsule 200 mg PO DAILY Qty: 90 RF: 0 atorvastatin 80 mg tablet 80 mg PO QPM Qty: 90 RF: 0 clobetasol 0.05 % cream 1 appln topical BID Qty: 3 RF: 0 atenolol 50 mg tablet 50 mg PO DAILY Qty: 90 RF: 0 olmesartan 40 mg tablet 40 mg PO DAILY Qty: 90 RF: 0 metformin 500 mg tablet See Patient Comments PO BID RF: 0 aspirin 81 mg tablet,delayed release (DR/EC) 81 mg PO DAILY RF: 0 melatonin 5 mg capsule 1 cap PO .TAKE 1 CAPSULE Bedti RF: 0 calcium carbonate 200 mg calcium (500 mg) tablet,chewable 200 mg PO DAILY RF: 0 anastrozole 1 mg tablet 1 mg PO DAILY RF: 0 venlafaxine 75 mg capsule,extended release 24hr 75 mg PO DAILY RF: 0 alendronate 70 mg tablet 70 mg PO WK RF: 0 gabapentin 300 mg capsule 300 mg PO TID RF: 0 Discontinued hydrochlorothiazide 25 mg tablet 25 mg PO DAILY Qty: 90 RF: 3 Discharge Orders: Discharge Order (Routine); Ordered 03/06/19 Ordered By: Natalie Mclean Admission Data Admit Date/Time: 03/03/19 04:13 Attending Provider: Natalie Mclean Admit Provider: Bautista Lugo Primary Care Provider: Angel Zaidi Other Providers: Bautista Lugo ; Juarez Tejada Other Interventions: Discharge Summary Assessment (RN) Last Done: 03/06/19 16:17 DC Date/Time DO NOT enter until pt leaves facility: 03/06/19 16:39
== END 2019-03-06 16:39 | DRG 536 ==
LOC: ED 01:06 → SUATTDRO 04:13 → 3N 04:13